=== PATIENT | male | born 1935 | race Caucasian/White ===

== ENCOUNTER 2019-04-05 14:58 | Emergency (ER) | payer MEDICARE ==
[~2019-04-05] VITALS: Ht 170.2 cm; Wt 99.8 kg
[~2019-04-05 14:58] MED LIST: ADULT LOW DOSE81 MG PO; ALDACTONE25 MG PO; ALDACTONE50 MG PO; ALLER-CHLOR4 MG PO; ALLOPURINOL 10100 M1 PO; APAP650 PO; ASPIR 8181 MG PO; ATROVENT HFA14 GM INH; ATROVENT30 ML INH; AUGMENTIN 875875 M1 PO; AZITHROMYCIN 2250 MG PO; BUMETANIDE 1 MG1 M1 PO; CHLORTABS4 MG PO; COLACE100 MG PO; COLCHICINE0.6 MG PO; FUROSEMIDE 80 M80 M1 PO; IBUPROFEN 200200 M1 PO; K-DUR 20 MEQ T20 MEQ PO; LASIX 40 MG TAB40 M2 PO; MAG-OX 400 TAB400 M1 PO; METFORMIN HCL500 MG PO; METOLAZONE 5 MG5 M1 PO; PREDNISONE 10 M10 MG PO; PROAIR HFA8.5 GM IH; SIMVASTATIN40 MG PO; SINUS DECONGEST10 MG PO; SUPHEDRINE PE10 MG PO; VITAMINC500 PO; ZANTAC 7575 MG PO; ZOCOR 20 MG TAB20 M1 PO
[2019-04-05] MEDS ORDERED: KLOR-CON M2020 MEQ PO (15:09)
[2019-04-05] MEDS ORDERED: LIPITOR40 MG PO (15:09)
[2019-04-05] MEDS ORDERED: SPIRONOLACTONE25 MG PO (15:10)
[2019-04-05] MEDS ORDERED: FUROSEMIDE 40 M40 M1 PO (15:11)
[2019-04-05] MEDS ORDERED: ASA81BEC PO (15:11)
[2019-04-05] MEDS ORDERED: JANUMET 50-5001 EACH PO (15:12)
[2019-04-05] MEDS ORDERED: ACETAMINOPHEN650 M5 PO (15:12)
[2019-04-05] MEDS ORDERED: VITAMIN C1000 MG PO (15:12)
[2019-04-05] MEDS ORDERED: SUPHEDRINE PE10 MG PO (15:13)
[2019-04-05] MEDS ORDERED: VITAMIN B-121000 MC2 SUBLING (15:13)
[2019-04-05] MEDS ORDERED: IPRATROPIUM BRO30 ML (15:13)
[2019-04-05] MEDS ORDERED: COZAAR 25 MG TA25 M1 PO (15:14)
[2019-04-05 15:18] LABS: ABSOLUTE BASOPHILS 0.1 thou/uL (0.0-0.2); ABSOLUTE EOSINOPHILS 0.3 thou/uL (0.0-0.7); ABSOLUTE LYMPHOCYTES 1.2 thou/uL (0.8-5.3); ABSOLUTE MONOCYTES 0.5 thou/uL (0.0-1.2); ABSOLUTE NEUTROPHILS 5.7 thou/uL (1.6-8.1); BASOPHILS 1.1 %; EOSINOPHILS 3.5 %; HEMATOCRIT 39.7 % (42.0-52.0); HEMOGLOBIN 13.1 gm/dL (14.0-18.0); MCH 26.8 pg (26.0-34.0); MCHC 33.1 g/dL (28.0-37.0); MONOCYTES 6.9 %; MPV 9.8 fl. (7.2-11.1); NUCLEATED RBCS 0 /100WBC; PLATELET COUNT* 217 thou/uL (150-400); POLYS 73.5 %; RBC 4.89 mil/uL (4.50-6.00); RDW-CV 16.7 % (10.5-14.5); WBC 7.8 thou/uL (4.0-11.0)
[2019-04-05 15:27] LABS: CALCIUM 8.5 mg/dL (8.5-10.1); CREATININE 1.6 mg/dL (0.6-1.3); POTASSIUM 4.3 mmol/L (3.5-5.1)
[2019-04-05 15:30] LABS: INR 1.1; PROTIME 11.2 Seconds (9.20-11.50)
[2019-04-05 15:40] LABS: ALBUMIN 3.1 g/dL (3.4-5.0); CK-MB MASS 1.5 ng/mL (<0.5-3.6); MAGNESIUM 1.4 mg/dL (1.8-2.4); TOTAL BILIRUBIN 0.4 mg/dL (<0.1-1.0); TOTAL PROTEIN 7.8 g/dL (6.4-8.2)
[2019-04-05 18:04] VITALS: BP 155/76
--- NOTE | 2019-04-06 11:09 | EKG ---
[place] [address] ELECTROCARDIOGRAM REPORT Name: NATHALY AHUMADA Room: [facility]#: [id number] Admission: 04/05/19 Attend Phys: Discharge: 04/05/19 Date of : 31 Date of Service: 04/05/19 1502 Report #: [id number] THIS REPORT FOR: //name// [facility] ED Test Date: 2019-04-05 Test Time: 15:02:56 Pat Name: NATHALY AHUMADA Department: Room: Gender: Advertising Project Manager: : 1935 Requested By: Addy Reyes Order Number: [id number] MD: Henok Cha Measurements Intervals [place] Rate: 68 P: 25 GA: 222 QRS: -19 QRSD: 144 T: 31 QT: 402 QTc: 428 Interpretive Statements Sinus rhythm Supraventricular bigeminy Prolonged GA interval Right bundle branch block Compared to ECG 07/20/2014 10:15:19 Atrial premature complex(es) now present First degree AV block now present Ventricular premature complex(es) no longer present Electronically Signed On 04-06-2019 11:08:15 BUSINESS OFFICE COORDINATOR by Henok Cha [email or web address] <ELECTRONICALLY SIGNED> By: Henok Cha MD, FACC 04/06/19 1108 1502 1502 Henok Cha MD, FAC /EPI
== END 2019-04-05 18:05 | disposition home or self-care (01) ==
LOC: M.ERS 14:58
PROVIDERS: Family Medicine
DX: R07.89 Other chest pain (principal); I11.0 Hypertensive heart disease with heart failure; I50.9 Heart failure, unspecified; I71.4 Abdominal aortic aneurysm, without rupture; E11.9 Type 2 diabetes mellitus without complications; E78.00 Pure hypercholesterolemia, unspecified; G47.30 Sleep apnea, unspecified; Z90.49 Acquired absence of other specified parts of digestive tract

== ENCOUNTER → 2019-08-04 | Outpatient (CLI) | payer MEDICARE ==
[~2019-08-04] MED LIST changes: +ACETAMINOPHEN650 M5 PO; +ASA81BEC PO; +COZAAR 25 MG TA25 M1 PO; +ELIQUIS5 MG PO; +FUROSEMIDE 40 M40 M1 PO; +IPRATROPIUM BRO30 ML; +JANUMET 50-5001 EACH PO; +KLOR-CON M2020 MEQ PO; +LIPITOR40 MG PO; +LOPRESSOR50 PO; +PACERONE200 MG PO; +PROTONIX 20 MG20 MG PO; +SPIRONOLACTONE25 MG PO; +VITAMIN B-121000 MC2 PO; +VITAMIN C1000 MG PO
[2019-08-04 15:29] LABS: HEMATOCRIT 45.6 % (42.0-52.0); HEMOGLOBIN 14.8 gm/dL (14.0-18.0); MCH 26.2 pg (26.0-34.0); MCHC 32.6 g/dL (28.0-37.0); MCV 80.3 fL (80.0-100.0); MPV 9.7 fl. (7.2-11.1); RBC 5.67 mil/uL (4.50-6.00); RDW-CV 16.4 % (10.5-14.5); WBC 8.9 thou/uL (4.0-11.0)
[2019-08-04 15:42] LABS: CALCIUM 8.8 mg/dL (8.5-10.1); CREATININE 1.7 mg/dL (0.6-1.3); POTASSIUM 4.6 mmol/L (3.5-5.1)
[2019-08-04 15:47] LABS: ALBUMIN 3.6 g/dL (3.4-5.0); TOTAL BILIRUBIN 0.4 mg/dL (<0.1-1.0)
== END ==
LOC: M.RAD 15:08
PROVIDERS: ATTEND Registered Nurse
DX: I48.92 Unspecified atrial flutter (principal); D50.9 Iron deficiency anemia, unspecified; E11.9 Type 2 diabetes mellitus without complications

== ENCOUNTER → 2019-09-23 | Outpatient (CLI) | payer MEDICARE ==
[2019-09-23] VITALS (14 sets, daily range): BP systolic 108–145; BP diastolic 52–92
[~2019-09-23] VITALS: Ht 170.2 cm; Wt 103.4 kg
[2019-09-23 12:10] LABS: HEMATOCRIT 45.2 % (42.0-52.0); HEMOGLOBIN 14.6 gm/dL (14.0-18.0); MCH 26.3 pg (26.0-34.0); MCHC 32.3 g/dL (28.0-37.0); MCV 81.6 fL (80.0-100.0); MPV 10.6 fl. (7.2-11.1); RBC 5.54 mil/uL (4.50-6.00); RDW-CV 18.1 % (10.5-14.5); WBC 8.5 thou/uL (4.0-11.0)
[2019-09-23 12:13] LABS: CALCIUM 7.8 mg/dL (8.5-10.1); CREATININE 2.1 mg/dL (0.6-1.3); POTASSIUM 4.1 mmol/L (3.5-5.1)
[2019-09-23 12:14] LABS: INR 1.1; PROTIME 11.4 Seconds (9.20-11.50)
--- NOTE | 2019-09-23 16:42 | NUR ---
Cardiac Rehab Pacemaker education. PM education completed with receptive patient and using the PM booklet. States understanding not to get wound wet for 3 days and understands left arm restrictions and signs and symptoms of wound infection. Questions answered to patient and 's satisfaction.
--- NOTE | 2019-09-23 17:17 | EKG ---
[place] [address] ELECTROCARDIOGRAM REPORT Name: NATHALY AHUMADA Room: [facility]#: [id number] Admission: 09/23/19 Attend Phys: Wilder Ocasio, Discharge: Date of : 31 Date of Service: 09/23/19 1001 Report #: [id number] THIS REPORT FOR: //name// [facility] Test Date: 2019-09-23 Test Time: 10:01:32 Pat Name: NATHALY AHUMADA Department: Room: Gender: Manager Store: : 1935 Requested By: Wilder Ocasio Order Number: [id number] MD: Nathaly Hudson Measurements Intervals [place] Rate: 98 P: 98 [place]: 190 QRS: -38 QRSD: 159 T: -3 QT: 412 QTc: 527 Interpretive Statements Sinus rhythm Right bundle branch block Compared to ECG 04/05/2019 15:02:56 Atrial premature complex(es) no longer present First degree AV block no longer present Electronically Signed On 09-23-2019 17:16:49 CDT by Nathaly Hudson [email or web address] <ELECTRONICALLY SIGNED> By: Nathaly Hudson MD, [facility] 09/23/19 1716 1001 1001 Nathlay Hudson MD, [facility] /EPI
--- NOTE | 2019-09-25 13:19 | CARD ---
[facility] [address] [place] [address] CARDIAC CATH REPORT Name: NATHALY AHUMADA Room: [facility]#: [id number] Admission: 09/23/19 Attend Phys: Wilder Ocasio MD Discharge: Date of : 31 Report #: [id number] THIS REPORT FOR: //name// cc: Lexx Abdi MD, Matthew D MD ~ APPROVED REPORT Study performed: 09/23/2019 11:01:11 Event Personnel: Wilder Ocasio Career Services Coordinator, Yovani Hall RN RN, Delfino Mills Scrub, Ju Su RTR Monitor Exam: CV Temporary Pacemaker Insertion The patient is a 84 year-old male with a history of . Conscious Sedation No Sedation given. Case start was 11:21 and case end was 11:29. Procedure The patient underwent informed consent. We discussed the details of the procedure including the risks, which include, but not limited to bleeding, infection, vascular damage, cardiac perforation, and pneumothorax. The patient was brought to the EP/ Cardiac Catheterization laboratory in a fasting and sedated state and prepped and draped in a sterile fashion. The right groin was infiltrated with 2 % percent lidocaine. Gained access in the right femoral vein where a 5 fr sheath was placed. Temporary pacing lead was inserted. Temporary pacemaker was turned on and tested for threshold. Rate: 50 MA: 5. The lead and sheath were sutured into place using an 0 silk suture. A sterile dressing was placed over the site. Complications The patient tolerated the procedure well and there were no complications associated with the procedure. <ELECTRONICALLY SIGNED> By: Wilder Ocasio MD, FACC 09/25/19 1318 1318 1318Michaesonido Ocasio MD, FACC /INF
--- NOTE | 2019-10-02 12:48 | CARD ---
[address] [address] CARDIAC CATH REPORT Name: NATHALY AHUMADA Room: [facility]#: [id number] Admission: 09/23/19 Attend Phys: Wilder Ocasio MD Discharge: Date of : 31 Report #: [id number] THIS REPORT FOR: //name// cc: eLxx Abdi MD, Matthew D MD ~ CC: Lexx Ocasio DATE OF SERVICE: 09/23/2019 PROCEDURE: DC cardioversion. INDICATION: Persistent atrial flutter. DESCRIPTION OF PROCEDURE: After informed consent was obtained, the patient was brought to the cardiac holding area. The patient received intravenous Versed and fentanyl for conscious sedation. Once the patient was adequately sedated, he was cardioverted with a biphasic shock of 300 joules. Initially, he had significant pause in cardiac rhythm with brief CPR administered. The patient ultimately had resumption of a sinus bradycardia. He was given naloxone and midazolam for reversal. The patient continued to have persistent bradycardia post-conversion and was transferred to the Interventional Radiology Lab for temporary pacemaker placement. IMPRESSION: 1. Persistent atrial flutter. 2. Cardioversion to an unstable sinus bradycardia indicating sinus node dysfunction. <ELECTRONICALLY SIGNED> By: Wilder Ocasio MD, [facility] 10/02/19 1248 0835 [id number] Hospitalfatoumata Ocasio MD, FACC /nt
--- NOTE | 2019-10-21 17:13 | CARD ---
[address] [address] CARDIAC CATH REPORT Name: NATHALY AHUMADA Room: [facility]#: [id number] Admission: 09/23/19 Attend Phys: Wilder Ocasio MD Discharge: Date of : 31 Report #: [id number] THIS REPORT FOR: //name// cc: Lexx Abdi MD, Matthew D MD ~ ADDENDUM APPROVED REPORT Study performed: 09/23/2019 13:00:33 Patient Status: Out-Patient Room #: Event Personnel: Wilder Ocasio Preparation Room Manager, Libby Garcia RN Social Security Specialist, Mauricio Rivers ROASTER OPERATOR Monitor, Delfino Mills ROASTER OPERATOR Scrub Exam: Insertion of Dual Chamber Permanent Pacemaker Indications: Sick Sinus Syndrome/Tachy Norberto Syndrome The patient is a 84 year-old male with a history of . Conscious Sedation Start time: 13:42 End Time: 14:06 Versed 0.5 mg Implanted Devices: Biotronik Edora 8 DRT, model #929307, serial #[id number] dual-chamber pulse generator. Biotronik Solia S 53, serial #[id number] atrial lead. Biotronik Solia S 60, serial #[id number] ventricular lead. Procedure The patient underwent informed consent. We discussed the details of the procedure including the risks, which include, but not limited to bleeding, infection, vascular damage, cardiac perforation, and pneumothorax. He understood these risks and was willing to proceed. As such, he was brought to the EP/Cardiac Catheterization laboratory in a fasting and sedated state and prepped and draped in a sterile fashion, received IV antibiotics prior to initiation of the procedure and a venogram was performed showing patency of the left axillary vein. The patient underwent conscious sedation, with no related complications. The patient was brought to the EP/Cardiac Catheterization laboratory and the left chest and shoulder were prepped and draped in a sterile manner. During this case, Fluoroscopy and visipaque [place] [address] CARDIAC CATH REPORT Name: NATHALY AHUMADA [id number] Admission: 09/23/19 Attend Phys: Wilder Ocasio MD Discharge: Date of : 31 Report #: [id number] The left subclavian region was infiltrated with 2% Lidocaine with Epinephrine subcutaneous anesthesia. A transverse incision was made in the left upper chest cavity. Sheaths were positions using the modified Seldinger technique Utilizing fluoroscopic guidance, the Atrial and ventricular leads were advanced over the wires and positioned in the right atria and right ventricle respectively. Capturing and sensing thresholds were verified. The atrial and ventricular leads were then secured within the device pocket using 0 silk suture in the designated cuffs. The device pocket was then flushed with antibiotic solution. A dual-chamber pulse generator was then attached to the atrial and ventricular leads. The pulse generator and redundant lead were then placed within the device pocket. The deep tissues were closed using interrupted stitches of 2-0 Vicryl. The skin incision then was closed with a single subcuticular stitch of 4-0 Vicryl. Several Steri-Strips were then placed across the incision. A sterile Telfa dressing was then covered with a Tegaderm. The patient was returned to the recovery area in stable condition. Electrode Parameters P Wave: 2.7 mV R Wave: 6.0 mV Atrial Threshold: 1.0 V at 0.40 ms Ventricular Threshold: 1.0 V at 0.40 ms Atrial Resistance: 897 ohms Ventricular Resistance: 526 ohms Conclusion 1. Sick sinus syndrome with paroxysmal atrial flutter. 2. Successful placement of a dual-chamber pacemaker with atrial and ventricular lead placement. Recommendations 1. Follow-up site check in 1 week. 2. Follow-up device interrogation in the office in 1 to 2 months. <ELECTRONICALLY SIGNED> By: Wilder Ocasio MD, [facility] 10/21/19 171 12 171Michaesonido Ocasio MD, FACC /INF
== END ==
LOC: M.LAB 07:00 → M.CT 08:00 → M.LAB 09:29
PROVIDERS: ATTEND Internal Medicine Cardiovascular Disease
DX: I49.5 Sick sinus syndrome (principal); I71.4 Abdominal aortic aneurysm, without rupture; I11.0 Hypertensive heart disease with heart failure; I50.32 Chronic diastolic (congestive) heart failure; E78.00 Pure hypercholesterolemia, unspecified; G47.30 Sleep apnea, unspecified; E11.9 Type 2 diabetes mellitus without complications; I48.92 Unspecified atrial flutter; I25.10 Atherosclerotic heart disease of native coronary artery without angina pectoris; I31.1 Chronic constrictive pericarditis; Z79.899 Other long term (current) drug therapy; Z98.890 Other specified postprocedural states; Z79.84 Long term (current) use of oral hypoglycemic drugs; Z79.82 Long term (current) use of aspirin; Z82.49 Family history of ischemic heart disease and other diseases of the circulatory system

== ENCOUNTER → 2019-10-28 | Outpatient (CLI) | payer MEDICARE ==
[2019-10-28 12:52] LABS: CREATININE 1.9 mg/dL (0.6-1.3); POTASSIUM 4.3 mmol/L (3.5-5.1)
== END ==
LOC: M.CT 10-24 12:00 → M.LAB 10-24 12:00 → M.CT 10-24 13:00 → M.LAB 12:00 → M.CT 13:00
PROVIDERS: ATTEND Internal Medicine Cardiovascular Disease
DX: K57.30 Diverticulosis of large intestine without perforation or abscess without bleeding (principal); I71.4 Abdominal aortic aneurysm, without rupture; I71.2 Thoracic aortic aneurysm, without rupture; K80.20 Calculus of gallbladder without cholecystitis without obstruction; I25.10 Atherosclerotic heart disease of native coronary artery without angina pectoris; N28.1 Cyst of kidney, acquired; M51.36 Other intervertebral disc degeneration, lumbar region

== ENCOUNTER → 2020-03-11 | Outpatient (CLI) | payer MEDICARE | LOC: M.RAD 10:52 | PROVIDERS: ATTEND Internal Medicine Cardiovascular Disease | DX: Z79.899 Other long term (current) drug therapy (principal) ==

== ENCOUNTER → 2020-09-10 | Outpatient (CLI) | payer MEDICARE | LOC: M.RAD 11:20 | PROVIDERS: ATTEND Internal Medicine Cardiovascular Disease | DX: J43.8 Other emphysema (principal); J84.89 Other specified interstitial pulmonary diseases; I48.0 Paroxysmal atrial fibrillation; I50.32 Chronic diastolic (congestive) heart failure; I11.0 Hypertensive heart disease with heart failure; Z79.899 Other long term (current) drug therapy ==